=== PATIENT | female | born 1955 | race Caucasian/White ===

== ENCOUNTER 2018-10-29 16:54 | Emergency (ER) | payer SELFPAY ==
[2018-10-29] MEDS ORDERED: Sodium Chloride 0.9% 10 ML Syringe FLUSH PRN (17:02)
[2018-10-29] MEDS ORDERED: Aspirin 81 MG Tab.Chew PO ONE (17:02)
[2018-10-29] MEDS ORDERED: Nitroglycerin 0.4 MG Tab.SL SL PRN (17:02)
--- NOTE | 2018-10-29 17:06 | EDM.PDOC ---
<OfficerEdgardo - Last Filed: 10/29/18 17:15> ED HPI GENERAL MEDICAL PROBLEM - General Chief Complaint: Chest Pain Stated Complaint: CHEST PAINS Time Seen by Provider: 10/29/18 17:02 Source of Information: Reports: Patient, RN Notes Reviewed History Limitations: Reports: No Limitations - History of Present Illness INITIAL COMMENTS - FREE TEXT/NARRATIVE: 63-year-old female presents to the emergency department today complaint of chest pain, she states she's had chest pain on and off for several months however today it got significantly worse she describes it as a gripping in her chest pain is quite severe it does come on with exertion she does get nauseated and she does feel short of breath. She does not follow with her regular physician. I was able to consult with the family states she's been depressed over the last year has not really left the house also stopped taking her thyroid medication Chest Pain Score (Numeric/FACES): 8 - Related Data Allergies Allergy/AdvReac Type Severity Reaction Status Date / Time No Known Allergies Allergy Verified 10/29/18 17:26 Home Meds: Home Meds Levothyroxine [Synthroid] 50 mcg PO ACBREAKFAST 10/29/18 [History] Lisinopril [Prinivil] 20 mg PO DAILY #14 tab 10/29/18 [Rx] Past Medical History Endocrine/Metabolic History: Reports: Hypothyroidism Social & Family History - Tobacco Use Smoking Status *Q: Former Smoker ED ROS GENERAL - Review of Systems Review Of Systems: See Below Constitutional: Reports: Weight Loss HEENT: Reports: No Symptoms Respiratory: Reports: Shortness of Breath Cardiovascular: Reports: Chest Pain, Dyspnea on Exertion GI/Abdominal: Reports: Nausea : Reports: No Symptoms Musculoskeletal: Reports: No Symptoms Skin: Reports: No Symptoms Neurological: Reports: No Symptoms Psychiatric: Reports: Depression ED EXAM, GENERAL - Physical Exam Exam: See Below Exam Limited By: No Limitations General Appearance: Alert, Moderate Distress Head: Atraumatic, Normocephalic Neck: Normal Inspection, Supple, Non-Tender, Full Range of Motion Respiratory/Chest: No Respiratory Distress, Lungs Clear, Normal Breath Sounds, No Accessory Muscle Use, Chest Non-Tender Cardiovascular: Normal Peripheral Pulses, Regular Rate, Rhythm, No Edema, No Gallop, No Murmur, No Rub GI/Abdominal: Soft, Non-Tender Course - Vital Signs Last Recorded V/S: Last Vital Signs Temp 36.2 C 10/29/18 16:57 Pulse 74 10/29/18 18:28 Resp 14 10/29/18 18:28 BP 221/128 H 10/29/18 18:28 Pulse Ox 98 10/29/18 18:28 - Orders/Labs/Meds Orders: Active Orders 24 hr Category Date Time Status Cardiac Monitoring [RC] .As Directed Care 10/29/18 17:02 Active EKG Documentation Completion [RC] ASDIRECTED Care 10/29/18 17:03 Active Peripheral IV Care [RC] . DIRECTED Care 10/29/18 17:03 Active Nitroglycerin [Nitrostat] Med 10/29/18 17:02 Active 0.4 mg SL Q5M PRN Sodium Chloride 0.9% [Saline Flush] Med 10/29/18 17:02 Active 10 ml FLUSH ASDIRECTED PRN Peripheral IV Insertion Adult [OM.PC] Stat Oth 10/29/18 17:02 Ordered Saline Lock Insert [OM.PC] Stat Oth 10/29/18 17:02 Ordered EKG 12 Lead [EK] Stat Ther 10/29/18 17:03 Ordered Medication Orders Nitroglycerin (Nitrostat) 0.4 mg SL Q5M PRN PRN Reason: Chest Pain Stop: 10/30/18 17:02 Last Admin: 10/29/18 17:17 Dose: 0.4 mg Sodium Chloride (Saline Flush) 10 ml FLUSH ASDIRECTED PRN PRN Reason: Keep Vein Open Labs: Laboratory Tests 10/29/18 10/29/18 10/29/18 Range/Units 17:12 17:12 17:12 WBC 6.5 (4.5-11.0) K/uL RBC 4.57 (3.30-5.50) M/uL Hgb 13.7 (12.0-15.0) g/dL Hct 41.9 (36.0-48.0) % MCV 92 (80-98) fL MCH 30 (27-31) pg MCHC 33 (32-36) % Plt Count 243 (150-400) K/uL Neut % (Auto) 59 (36-66) % Lymph % (Auto) 32 (24-44) % [place] % (Auto) 7 H (2-6) % Eos % (Auto) 1 L (2-4) % Baso % (Auto) 0 (0-1) % PT 10.7 (9.5-12.0) sec INR 0.97 (0.80-1.20) APTT 25.0 L (27.0-36.0) sec Sodium 140 (140-148) mmol/L Potassium 4.0 (3.6-5.2) mmol/L Chloride 102 (100-108) mmol/L Carbon Dioxide 28 (21-32) mmol/L Anion Gap 10.0 (5.0-14.0) mmol/L BUN 23 H (7-18) mg/dL Creatinine 1.0 (0.6-1.0) mg/dL Est Cr Clr Drug Dosing TNP Estimated GFR (MDRD) 56 L (>60) Glucose 96 (74-106) mg/dL Calcium 9.4 (8.5-10.1) mg/dL Total Bilirubin 0.3 (0.2-1.0) mg/dL AST 22 (15-37) U/L ALT 30 (12-78) U/L Alkaline Phosphatase 96 (46-116) U/L CK-MB (CK-2) (0-3.6) mg/mL Troponin I < 0.017 (0.000-0.056) ng/mL Total Protein 8.0 (6.4-8.2) g/dL Albumin 4.0 (3.4-5.0) g/dL Globulin 4.0 H (2.3-3.5) g/dL Albumin/Globulin Ratio 1.0 L (1.2-2.2) TSH, Ultra Sensitive (0.358-3.740) uIU/mL 10/29/18 10/29/18 Range/Units 17:18 17:22 WBC (4.5-11.0) K/uL RBC (3.30-5.50) M/uL Hgb (12.0-15.0) g/dL Hct (36.0-48.0) % MCV (80-98) fL MCH (27-31) pg MCHC (32-36) % Plt Count (150-400) K/uL Neut % (Auto) (36-66) % Lymph % (Auto) (24-44) % [place] % (Auto) (2-6) % Eos % (Auto) (2-4) % Baso % (Auto) (0-1) % PT (9.5-12.0) sec INR (0.80-1.20) APTT (27.0-36.0) sec Sodium (140-148) mmol/L Potassium (3.6-5.2) mmol/L Chloride (100-108) mmol/L Carbon Dioxide (21-32) mmol/L Anion Gap (5.0-14.0) mmol/L BUN (7-18) mg/dL Creatinine (0.6-1.0) mg/dL Est Cr Clr Drug Dosing Estimated GFR (MDRD) (>60) Glucose (74-106) mg/dL Calcium (8.5-10.1) mg/dL Total Bilirubin (0.2-1.0) mg/dL AST (15-37) U/L ALT (12-78) U/L Alkaline Phosphatase (46-116) U/L CK-MB (CK-2) 1.2 (0-3.6) mg/mL Troponin I (0.000-0.056) ng/mL Total Protein (6.4-8.2) g/dL Albumin (3.4-5.0) g/dL Globulin (2.3-3.5) g/dL Albumin/Globulin Ratio (1.2-2.2) TSH, Ultra Sensitive 5.637 H (0.358-3.740) uIU/mL Meds: Medications Generic Name Dose Route Start Last Admin Trade Name Freq PRN Reason Stop Dose Admin Nitroglycerin 0.4 mg 10/29/18 17:02 10/29/18 17:17 Nitrostat SL 10/30/18 17:02 0.4 mg Q5M PRN Administration Chest Pain Sodium Chloride 10 ml 10/29/18 17:02 Saline Flush FLUSH ASDIRECTED PRN Keep Vein Open Discontinued Medications Generic Name Dose Route Start Last Admin Trade Name Freq PRN Reason Stop Dose Admin Aspirin 324 mg 10/29/18 17:02 10/29/18 17:12 Aspirin PO 10/29/18 17:03 324 mg ONETIME ONE Administration Lorazepam 1 mg 10/29/18 18:43 02/18/19 18:54 Ativan IVPUSH 02/18/19 18:44 1 mg ONETIME ONE Administration Departure - Departure Disposition: Home, Self-Care 01 Clinical Impression: Anxiety HTN (hypertension) Qualifiers: Hypertension type: unspecified Qualified Code(s): I10 - Essential (primary) hypertension Referrals: Tabitha Au PA [Primary Care Provider] - Forms: ED Department Discharge Additional Instructions: Take lisinopril 20 mg every evening. Avoid salt or saturated fats. Take lorazepam 0.5-1 mg every 8 hrs as needed for anxiety. See your doctor mele to discuss BP medication refill/dosage adjustments and for evaluation of your anxiety/depression. <Gregorio Thomas - Last Filed: 10/29/18 19:30> Course - Vital Signs Text/Narrative:: Feeling much better after Ativan, BP down to 186 systolic. Departure - Departure Time of Disposition: 19:40 Condition: Fair
--- NOTE | 2018-10-29 17:53 | CRLCR ---
HISTORY: Chest pain COMPARISON: None available FINDINGS: A portable erect AP view of the chest was obtained at 17 17 hours. The lungs are clear. No focal or diffuse infiltrates are present. The heart is normal in size. The mediastinum is normal in appearance. There is minimal scoliosis of the mid thoracic spine convex towards the right. IMPRESSION: No active disease seen in the chest. Dictated by Deion Monique MD @ Oct 29 2018 5:49PM Signed by Dr. Deion Monique @ Oct 29 2018 5:51PM
[2018-10-29] MEDS ORDERED: LORazepam 2 MG/ML SDV IVPUSH ONE (18:43)
[2018-10-29] MEDS ORDERED: Lisinopril 20 MG Tab PO SCH (19:30)
[2018-10-29] MEDS ORDERED: Lisinopril 10 MG Tab PO ONE (19:32)
[2018-10-29] MEDS ORDERED: Lisinopril 10 MG Tab ONE (19:33)
== END 2018-10-29 19:58 | disposition home or self-care (01) ==
LOC: JP.ED 16:54
DX: F41.9 Anxiety disorder, unspecified (principal); I10 Essential (primary) hypertension
CPT/HCPCS: 36415; 71045; 80053; 82553; 84443; 84484; 85025; 85610; 85730; 93005; 99283; 99285; A9270; J2060